=== PATIENT | female | born 1955 | race Caucasian/White ===

== ENCOUNTER 2023-03-13 14:21 | Outpatient (CLI) | payer MEDICARE, BC | END 2023-03-13 14:22 | disposition home or self-care (01) | LOC: BICMAMMO 14:21 | PROVIDERS: ATTEND Internal Medicine | DX: Z13.820 Encounter for screening for osteoporosis (principal); M85.89 Other specified disorders of bone density and structure, multiple sites | CPT/HCPCS: 77080 ==